=== PATIENT | female | born 1985 | race Caucasian/White ===

== ENCOUNTER → 2023-12-04 12:24 | Outpatient (REF) | payer BC, SELFPAY ==
[2023-12-12 08:23] LABS: HPV, High Risk Not Detected; HPV, High Risk Source Cervical
== END ==
LOC: CPAP 12:24
PROVIDERS: ATTENDING PHYSICIAN Advanced Practice Midwife
DX: Z01.419 Encounter for gynecological examination (general) (routine) without abnormal findings (principal); Z11.51 Encounter for screening for human papillomavirus (HPV)
CPT/HCPCS: 87624

== ENCOUNTER → 2024-03-12 15:13 | Outpatient (REF) | payer BC, SELFPAY | LOC: CLAB 15:13 | PROVIDERS: ATTENDING PHYSICIAN Obstetrics & Gynecology | DX: N76.0 Acute vaginitis (principal) | CPT/HCPCS: 87491; 87591 ==

== ENCOUNTER → 2024-03-13 16:42 | Outpatient (REF) | payer BC, SELFPAY ==
[2024-03-13 17:52] LABS: % Basophils 0.7 % (0-2); % Immature Granulocytes 0.3 % (0-0.5); % Lymphocytes 24.2 % (20.5-51.1); % Neutrophils 66.8 % (42.2-75.2); Absolute Basophils 0.1 10^3/uL (0-0.2); Absolute Eosinophils 0.1 10^3/uL (0-0.7); Absolute Lymphocytes 2.3 10^3/uL (1.2-3.4); Absolute Monocytes 0.7 10^3/uL (0.1-0.6); Absolute Neutrophils 6.3 10^3/uL (1.4-6.5); Hematocrit 36.3 % (37.0-47.0); Hemoglobin 12.6 g/dL (12.0-16.0); Mean Corp Hgb Conc. 34.7 g/dL (33.0-37.0); Mean Corpuscular Hgb 32.6 pg (27.0-31.0); Mean Corpuscular Volume 93.8 fL (81.0-99.0); Mean Platelet Volume 10.1 fL (7.4-10.4); Nucleated Red Blood Cells % 0 %; Platelet Count 320 10^3/uL (130-400); Red Blood Cell Count 3.87 10^6/uL (4.20-5.40); Red Cell Dist. Width 12.2 % (11.5-14.5); White Blood Cell Count 9.5 10^3/uL (4.8-10.8)
[2024-03-13 18:01] LABS: Urine Albumin Negative (Neg - Trace); Urine Bilirubin Negative (Negative); Urine Character Clear (Clear); Urine Color Straw; Urine Glucose Negative (Negative); Urine Ketone Negative (Negative); Urine Leukocyte Trace (Negative); Urine Nitrite Negative (Negative); Urine Occult Blood Negative (Negative); Urine Urobilinogen Negative (Neg - 1+)
[2024-03-13 19:21] LABS: Urine Red Blood Cell 0-2 /HPF (0-2); Urine Squamous Cell 0-2 /LPF (Few); Urine White Cell 0-2 /HPF (0-5)
[2024-03-13 19:29] LABS: Rubella Positive
[2024-03-13 19:52] LABS: Hepatitis C Antibody Negative (Negative)
[2024-03-13 20:40] LABS: Hepatitis B Surface Antigen Negative (Negative)
[2024-03-14 11:15] LABS: Glycohemoglobin (HgbA1c) 4.8 % (4.0-5.6)
== END ==
LOC: REG 16:42
PROVIDERS: ATTENDING PHYSICIAN Obstetrics & Gynecology; FAMILY PHYSICIAN Nurse Practitioner Family
DX: Z32.01 Encounter for pregnancy test, result positive (principal)
CPT/HCPCS: 36415; 80055; 81003; 81015; 83036; 86803; 86850; 86900; 86901; 87086

== ENCOUNTER → 2024-04-11 09:11 | Outpatient (REF) | payer BC, SELFPAY ==
[2024-04-11 10:56] LABS: ALT (SGPT) 29 U/L (0-35); AST (SGOT) 31 U/L (14-36); Albumin 4.4 g/dl (3.5-5.0); Alkaline Phosphatase 38 U/L (38-126); Blood Urea Nitrogen 12 mg/dl (7-17); Calcium 9.8 mg/dl (8.4-10.2); Carbon Dioxide 25 mmol/L (22-30); Chloride 100 mmol/L (98-107); Glucose 84 mg/dl (70-99); HDL Cholesterol 63 mg/dl; LDL Cholesterol, Calculated 93 mg/dl; Potassium 4.5 mmol/L (3.5-5.1); Sodium 137 mmol/L (135-145); Total Bilirubin 0.7 mg/dl (0.2-1.3); Total Cholesterol 166 mg/dl (50-199); Triglyceride 52 mg/dl (10-149); Very Low Density Lipoprotein 10 mg/dl (0-30); eGFR > 60.00
[2024-04-11 11:34] LABS: HIV Combo Negative (Negative)
== END ==
LOC: REG 09:11
PROVIDERS: ATTENDING PHYSICIAN Obstetrics & Gynecology; FAMILY PHYSICIAN Nurse Practitioner Family
DX: Z34.92 Encounter for supervision of normal pregnancy, unspecified, second trimester (principal); Z13.1 Encounter for screening for diabetes mellitus; Z13.220 Encounter for screening for lipoid disorders
CPT/HCPCS: 36415; 80053; 80061; 87389

== ENCOUNTER → 2024-06-22 14:16 | Outpatient (REF) | payer BC, SELFPAY | LOC: PNTC 14:16 | PROVIDERS: ATTENDING PHYSICIAN Obstetrics & Gynecology | DX: O09.519 Supervision of elderly primigravida, unspecified trimester (principal) | CPT/HCPCS: 76811 ==

== ENCOUNTER → 2024-08-07 09:09 | Outpatient (REF) | payer BC, SELFPAY ==
[2024-08-07 11:03] LABS: % Basophils 0.5 % (0-2); % Eosinophils 0.7 % (0-6); % Immature Granulocytes 0.4 % (0-0.5); % Lymphocytes 14.8 % (20.5-51.1); % Monocytes 5.6 % (1.7-9.3); Absolute Basophils 0.1 10^3/uL (0-0.2); Absolute Eosinophils 0.1 10^3/uL (0-0.7); Absolute Lymphocytes 1.4 10^3/uL (1.2-3.4); Absolute Monocytes 0.5 10^3/uL (0.1-0.6); Absolute Neutrophils 7.1 10^3/uL (1.4-6.5); Hematocrit 36.1 % (37.0-47.0); Hemoglobin 12.1 g/dL (12.0-16.0); Mean Corp Hgb Conc. 33.5 g/dL (33.0-37.0); Mean Corpuscular Hgb 32.4 pg (27.0-31.0); Mean Corpuscular Volume 96.8 fL (81.0-99.0); Mean Platelet Volume 10.3 fL (7.4-10.4); Nucleated Red Blood Cells % 0 %; Platelet Count 264 10^3/uL (130-400); Red Blood Cell Count 3.73 10^6/uL (4.20-5.40); White Blood Cell Count 9.1 10^3/uL (4.8-10.8)
== END ==
LOC: REG 09:09
PROVIDERS: ATTENDING PHYSICIAN Obstetrics & Gynecology
DX: Z34.93 Encounter for supervision of normal pregnancy, unspecified, third trimester (principal)
CPT/HCPCS: 36415; 85025; 86780

== ENCOUNTER → 2024-08-10 07:58 | Outpatient (REF) | payer BC, SELFPAY | LOC: PNTC 07:58 | PROVIDERS: ATTENDING PHYSICIAN Obstetrics & Gynecology | DX: O09.519 Supervision of elderly primigravida, unspecified trimester (principal) | CPT/HCPCS: 76816 ==

== ENCOUNTER → 2024-09-14 08:02 | Outpatient (REF) | payer BC, SELFPAY | LOC: PNTC 08:02 | PROVIDERS: ATTENDING PHYSICIAN Obstetrics & Gynecology | DX: O09.519 Supervision of elderly primigravida, unspecified trimester (principal) | CPT/HCPCS: 76816 ==

== ENCOUNTER 2024-10-29 16:20 | Inpatient (IN) | payer BC, SELFPAY ==
[2024-10-29 16:28] VITALS: BP 122/85; BMI 29.9
[2024-10-29 17:12] LABS: % Basophils 0.4 % (0-2); % Eosinophils 0.5 % (0-6); % Immature Granulocytes 0.4 % (0-0.5); % Lymphocytes 23.5 % (20.5-51.1); % Monocytes 7.6 % (1.7-9.3); % Neutrophils 67.6 % (42.2-75.2); Absolute Eosinophils 0.1 10^3/uL (0-0.7); Absolute Lymphocytes 2.4 10^3/uL (1.2-3.4); Absolute Monocytes 0.8 10^3/uL (0.1-0.6); Hematocrit 34.1 % (37.0-47.0); Hemoglobin 11.8 g/dL (12.0-16.0); Mean Corp Hgb Conc. 34.6 g/dL (33.0-37.0); Mean Corpuscular Hgb 32.4 pg (27.0-31.0); Mean Corpuscular Volume 93.7 fL (81.0-99.0); Mean Platelet Volume 11.8 fL (7.4-10.4); Nucleated Red Blood Cells % 0 %; Platelet Count 193 10^3/uL (130-400); Red Blood Cell Count 3.64 10^6/uL (4.20-5.40); Red Cell Dist. Width 12.5 % (11.5-14.5); White Blood Cell Count 10.3 10^3/uL (4.8-10.8)
[2024-10-30] MEDS: LR 1000 IV (05:12)
[2024-10-30] MEDS: PITOCIN 30 UNITS/NSS 500 ML IV (05:13)
[2024-10-31] MEDS: LR 1000 IV ×2 (01:30→11:25)
[2024-10-31] MEDS: FENTANYL/BUPIVACAINE 100 EPIDURAL (03:37)
[2024-10-31] MEDS: SUBLIMAZE 100 MCG EPIDURAL (03:37)
[2024-10-31] MEDS: TYLENOL 1000 MG PO (05:25)
[2024-10-31] MEDS: CLEOCIN 50 IV (05:25)
[2024-10-31] MEDS: BICITRA 30 ML PO (05:25)
[2024-10-31] MEDS: ZITHROMAX INFUSION 250 IV (05:42)
[2024-10-31] MEDS: GENTAMICIN 59.75 MG IV (06:01)
[2024-10-31] MEDS: PRENATAL PLUS PO (08:32)
[2024-10-31] MEDS: TORADOL 15 MG IV ×3 (08:32→19:36)
[2024-10-31] MEDS: REGLAN 10 MG IV (08:33)
[2024-10-31] MEDS: MORPHINE SULFATE 2 MG IV ×3 (10:00→16:44)
[2024-10-31] MEDS: FLUSH (NSS) 1 FLUSH IV (19:37)
[2024-11-01] MEDS: TORADOL 15 MG IV (02:02)
[2024-11-01] MEDS: FLUSH (NSS) 3 FLUSH IV (02:03)
[2024-11-01] MEDS: PERCOCET 5/325 1 TABLET PO ×6 (03:12→23:55)
[2024-11-01 03:37] LABS: Hemoglobin 9.8 g/dL (12.0-16.0); Mean Corp Hgb Conc. 33.8 g/dL (33.0-37.0); Mean Corpuscular Hgb 33.1 pg (27.0-31.0); Mean Platelet Volume 11.6 fL (7.4-10.4); Platelet Count 156 10^3/uL (130-400); Red Blood Cell Count 2.96 10^6/uL (4.20-5.40); Red Cell Dist. Width 12.7 % (11.5-14.5); White Blood Cell Count 24.6 10^3/uL (4.8-10.8)
[2024-11-01] MEDS: PRENATAL PLUS 1 TABLET PO (08:10)
[2024-11-01] MEDS: MOTRIN 600 MG PO ×3 (08:11→21:53)
[2024-11-01] MEDS: SENOKOT-S 1 TABLET PO (11:39)
[2024-11-02] MEDS: MOTRIN 600 MG PO ×4 (04:14→22:32)
[2024-11-02] MEDS: TYLENOL 650 MG PO ×5 (04:14→20:27)
--- NOTE | 2024-11-02 07:13 | W.PN.ANS.POP ---
Anesthesia Post Operative
- Anesthesia Post Op Note
Vital Signs Stable-See Nursing Note: Yes
Airway Patent: Yes
Adequate Pain Control: Yes
Change in Mental Status: No
Current Postoperative Nausea & Vomiting: No
Anesthesia Complications: No
General Anesthetic Recall: No
Unplanned Admission: No
Post Op Hydration Adequate: Yes
[2024-11-02] MEDS: PRENATAL PLUS 1 TABLET PO (08:40)
[2024-11-02] MEDS: SENOKOT-S 1 TABLET PO (08:40)
[2024-11-02 13:23] LABS: Syphilis/T. pallidum Ab Reflex Negative (Negative)
[2024-11-03] MEDS: PERCOCET 5/325 1 TABLET PO ×2 (00:32→04:43)
[2024-11-03] MEDS: MOTRIN 600 MG PO ×2 (04:43→10:40)
[2024-11-03] MEDS: TYLENOL 650 MG PO ×2 (09:19→12:57)
[2024-11-03] MEDS: SENOKOT-S 1 TABLET PO (10:33)
[2024-11-03] MEDS: PRENATAL PLUS 1 TABLET PO (10:33)
== END 2024-11-03 15:40 | disposition home or self-care (01) | DRG 788 ==
LOC: LDRP 16:20
PROVIDERS: Obstetrics & Gynecology; ADMITTING PHYSICIAN Advanced Practice Midwife
PROC: 0U7C7ZZ Dilation of Cervix, Via Natural or Artificial Opening (ICD-10-PCS; 2024-10-30)
PROC: 10D00Z1 Extraction of Products of Conception, Low, Open Approach (ICD-10-PCS; 2024-10-31)
DX: O69.81X0 Labor and delivery complicated by cord around neck, without compression, not applicable or unspecified (principal); O76 Abnormality in fetal heart rate and rhythm complicating labor and delivery; O62.1 Secondary uterine inertia; O61.0 Failed medical induction of labor; Z3A.39 39 weeks gestation of pregnancy; Z37.0 Single live birth; O69.2XX0 Labor and delivery complicated by other cord entanglement, with compression, not applicable or unspecified
CPT/HCPCS: 36415; 85025; 85027; 86780; 86850; 86900; 86901